=== PATIENT | female | born 1950 | race Caucasian/White ===

== ENCOUNTER 2018-02-24 14:39 | Emergency (ER) | payer MEDICARE, OTHER ==
--- NOTE | 2018-02-24 15:24 | Emergency Department Record ---
History of Present Illness - General Chief Complaint: Ankle/Foot Injury Stated Complaint: LT FOOT INJURY Time Seen by Provider: 02/24/18 14:54 Source: Patient Mode of Arrival: Wheelchair Limitations: No limitations - History of Present Illness Initial Comments: Heavy electric wood splitter tipped over and landed on left foot. Pain. No bleeding. Onset/Timin -: Minutes(s) Type of Injury: Other Place: Home Severity: Severe Severity scale (1-10): 9 Improves With: Nothing Worsens With: Weight bearing Associated Symptoms: Able to partially bear weight - Related Data Previous Rx's Medication Instructions Recorded Hydrocodone/Acetaminophen [[place] 1 each PO QID #20 tablet 01/17/16 5-325 Tablet] Allergies Allergy/AdvReac Type Severity Reaction Status Date / Time azithromycin Allergy RASH Verified 05/26/14 19:32 bacitracin Allergy RASH Verified 05/26/14 19:32 [From Neosporin ([id number])] bacitracin zinc Allergy RASH Verified 05/26/14 19:32 [From Neosporin ([id number])] neomycin sulfate Allergy RASH Verified 05/26/14 19:32 [From Neosporin ([id number])] polymyxin B Allergy RASH Verified 05/26/14 19:32 [From Neosporin ([id number])] Lvimmbz-Jut-Wse Reductase Allergy myalgia Verified 01/17/16 19:33 Inhibitor affects lorazepam [From Ativan] AdvReac Hallucinati Verified 05/26/14 19:32 ons tetracycline AdvReac VOMITING Verified 05/26/14 19:32 Travel Screening - Travel/Exposure Within Last 30 Days Have you traveled within the last 30 days?: No Review of Systems Constitutional: Denies: Chills, Fever Eyes: Denies: Eye discharge ENT: Denies: Congestion Respiratory: Denies: Cough, Dyspnea Cardiovascular: Denies: Chest pain Endocrine: Denies: Fatigue Gastrointestinal: Denies: Abdominal pain Musculoskeletal: Denies: Back pain Skin: Denies: Bruising, Rash Neurological: Reports: Abnormal gait. Denies: Numbness, Weakness Psychiatric: Denies: Anxiety Hematological/Lymphatic: Denies: Anemia Past Medical History - SOCIAL HISTORY Smoking Status: Never smoker Alcohol Use: None Drug Use: None - RESPIRATORY Hx Respiratory Disorders: No - CARDIOVASCULAR Hx Cardio Disorders: No - NEURO Hx Neuro Disorders: Yes Hx TIA: Yes (2 yr ago) - GI Hx GI Disorders: Yes Hx Reflux: Yes - Hx Genitourinary Disorders: Yes Hx Kidney Stones: Yes - ENDOCRINE Hx Endocrine Disorders: No - MUSCULOSKELETAL Hx Musculoskeletal Disorders: No - PSYCH Hx Psych Problems: No - HEMATOLOGY/ONCOLOGY Hx Hematology/Oncology Disorders: Yes Hx Cancer: Yes (stage 3 melanoma) Hx Chemotherapy: No Hx Radiation Therapy: No Family Medical History Any Significant Family History?: Yes Family Hx Comment (NOT TO BE USED IN PLACE OF ITEMS BELOW): 2 sisters w/Grave's disease Hx Cancer: Brother/Sister *Cancer Comment: son w/colon CA Hx Diabetes: Mother Hx Heart Disease: Mother Hx HTN: Mother Hx Kidney Disease: Mother Hx Stroke: Father, Brother/Sister Physical Exam - General General Appearance: Alert, Oriented x3, Cooperative, Mild distress - Head Head exam: Atraumatic - Eye Eye exam: Normal appearance, PERRL - ENT ENT exam: Normal exam - Neck Neck exam: Normal inspection. negative: Tenderness - Respiratory Respiratory exam: Normal lung sounds bilaterally. negative: Wheezes - Cardiovascular Cardiovascular Exam: Regular rate, Normal rhythm - GI/Abdominal GI/Abdominal exam: Soft. negative: Tenderness - Extremities Extremities exam: Full ROM, Normal capillary refill, Tenderness (Pain over proximal great toe/M1st MT left foot, no bruising or laceration. ). negative: Calf tenderness - Back Back exam: Reports: Normal inspection - Neurological Neurological exam: Alert, Oriented X3 - Psychiatric Psychiatric exam: Normal affect - Skin Skin exam: Normal color. negative: Rash Course Vital Signs 02/24/18 14:54 Temperature 97.6 F Pulse Rate 73 Respiratory 20 Rate Blood Pressure 146/79 Pulse Ox 98 - Reevaluation(s) Reevaluation #1: 02/24/18 15:22 XRays neg for fx. Hard sole shoe. Has [place] for Melanoma. Ice and rest. Disposition Disposition: Discharge Clinical Impression: Contusion of left foot, initial encounter Disposition: Home, Self-Care Condition: (1) Good Instructions: Foot Contusion (ED), Ice Pack Application (ED) Additional Instructions: Use post op shoe for comfort. Elevate and use your [place] for pain. ICE! Quality - Quality Measures Quality Measures: N/A - Blood Pressure Screening Does Patient Have Any of the Following: No Blood Pressure Classification: Hypertensive Reading Systolic Measurement: 146 Diastolic Measurement: 79 Screening for High Blood Pressure: < Normal BP, F/U Not Required > [G8783] Pre-Hypertensive Follow-up Interventions: Follow-up with rescreen every year.
--- NOTE | 2018-02-26 07:44 | RADIOLOGY REPORT ---
EXAM: LEFT FOOT, THREE VIEWS HISTORY: DROPPED SOMETHING ON FOOT. TECHNIQUE: Three views of the left foot were obtained. Comparison: None. Encounter: Initial. FINDINGS: Osteopenia is noted. No fractures are identified. Small calcaneal spurs, plantar and Achilles. There is mild diffuse soft tissue swelling. IMPRESSION: NO EVIDENCE OF FRACTURE OF THE LEFT FOOT. JOB NUMBER: [id number] MTDD
== END 2018-02-24 15:52 | disposition home or self-care (01) ==
LOC: ER 14:39
DX: S90.32XA Contusion of left foot, initial encounter (principal); W22.8XXA Striking against or struck by other objects, initial encounter; Y92.009 Unspecified place in unspecified non-institutional (private) residence as the place of occurrence of the external cause
CPT/HCPCS: 99283